=== PATIENT | female | born 1980 | race Two or more races ===

== ENCOUNTER 2018-04-26 08:10 | Emergency (ER) | payer MEDICAID ==
--- NOTE | 2018-04-26 08:39 | EDM.PDOC ---
<Bhupinder Rothman - Last Filed: 04/26/18 08:30> ED HPI GENERAL MEDICAL PROBLEM - General Chief Complaint: Laceration Stated Complaint: LT LEG LAC Time Seen by Provider: 04/26/18 08:45 Source of Information: Reports: Patient History Limitations: Reports: No Limitations - History of Present Illness INITIAL COMMENTS - FREE TEXT/NARRATIVE: Patient presents to the emergency department with a large left lower extremity laceration on her lateral knee/tibial area. 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 She was able to stop the hemorrhaging at the scene with a towel. She is up to date on ehr Tetanus, receiving it last year. She has full range of motion and feeling to her feet and toes. No other injuries present. Onset: Today Onset Time: 08:00 Location: Reports: Lower Extremity, Left Quality: Reports: Ache Severity: Mild Worsens with: Reports: Rest Left Lower Leg Pain Score (Numeric/FACES): 7 - Related Data Allergies Allergy/AdvReac Type Severity Reaction Status Date / Time No Known Allergies Allergy Verified 04/26/18 08:24 Home Meds: Home Meds Simvastatin 10 mg PO DAILY 04/26/18 [History] Past Medical History - Past Health History Medical/Surgical History: Denies Medical/Surgical History Cardiovascular History: Reports: High Cholesterol Social & Family History - Tobacco Use Smoking Status *Q: Current Every Day Smoker Years of Tobacco use: 10 Packs/Tins Daily: 0.5 - Recreational Drug Use Recreational Drug Use: No ED ROS GENERAL - Review of Systems Constitutional: Reports: No Symptoms Musculoskeletal: Denies: No Symptoms Skin: Reports: Wound (left lateral knee/proximal tibial area, from drywall saw accident) Neurological: Reports: No Symptoms. Denies: Numbness, Paresthesia ED EXAM, SKIN/RASH Exam Limited By: No Limitations General Appearance: Alert, No Apparent Distress Peripheral Pulses: 3+: Posterior Tibial (L), Dorsalis Pedis (L) Extremities: Leg Pain (left knee/tibial area, from laceration, mild) Skin: Wound/Incision (left lateral knee /proximal tibial area. 10cm length, 1.5cm width) Course - Vital Signs Last Recorded V/S: Last Vital Signs Temp 98 F 04/26/18 08:20 Pulse 107 H 04/26/18 08:20 Resp 16 04/26/18 08:20 BP 143/98 H 04/26/18 08:20 Pulse Ox 96 04/26/18 08:20 - Orders/Labs/Meds Meds: Medications Discontinued Medications Generic Name Dose Route Start Last Admin Trade Name Fredrick PRN Reason Stop Dose Admin Acetaminophen 975 mg 04/26/18 08:50 04/26/18 09:00 Tylenol PO 04/26/18 08:51 975 mg NOW ONE Administration Lidocaine HCl 50 ml 04/26/18 08:50 04/26/18 09:01 Xylocaine 1% INJECT 04/26/18 08:51 50 ml ONETIME ONE Administration Departure - Departure Disposition: Home, Self-Care 01 Clinical Impression: Leg laceration Qualifiers: Encounter type: initial encounter Laterality: left Qualified Code(s): S81.812A - Laceration without foreign body, left lower leg, initial encounter - Discharge Information Instructions: Laceration Care, Adult Referrals: PCP,None [Primary Care Provider] - Forms: ED Department Discharge Additional Instructions: Laceration care instructions, rest and elevate leg as much as possible, especially these first few days, intermittent ice packs if needed for swelling, you may leave the initial dressing on until tomorrow, cleanse carefully and change dressing at least once or twice daily and then apply antibiotic ointment over the area of laceration 2-3 times daily. Have rechecked any sign of infection, stitches out in about 12 days. There is no charge of you have those removed at our [facility]. Call [phone] for appointment. Tylenol if needed for discomfort. <Quentin Murray - Last Filed: 04/26/18 10:49> ED ROS GENERAL - Review of Systems Review Of Systems: See Below HEENT: Reports: No Symptoms Respiratory: Reports: No Symptoms GI/Abdominal: Denies: Nausea, Vomiting ED EXAM, SKIN/RASH Exam: See Below Head: Atraumatic Respiratory/Chest: No Respiratory Distress Extremities: Leg Pain Neurological: No Motor/Sensory Deficits Skin: Warm, Dry, Wound/Incision (left lateral knee /proximal tibial area. 10cm length, 1.5cm width, moderately deep but not to deep fascia) ED SKIN PROCEDURES - Laceration/Wound Repair Left Lateral Leg Lac/Wound length In cm: 10 Appearance: Linear Anesthetic Type: Local Local Anesthesia - Lidocaine (Xylocaine): 1% Plain Skin Prep: Saline Suture Size: 3-0 Suture Type: Nylon Suture Size: 3-0 # of Sutures: 21 Repaired with: Vicryl Suture Size: 4-0 # of Sutures: 8 Course - Re-Assessments/Exams Free Text/Narrative Re-Assessment/Exam: 04/26/18 10:43 Initial hx and exam was done by ANNMARIE Martínez student. I have also examined patient. I agree with the hx and exam as documented. Departure - Departure Time of Disposition: 10:12 Condition: Fair
[2018-04-26] MEDS ORDERED: Lidocaine 1% 50 ML MDV INJECT ONE (08:50)
[2018-04-26] MEDS ORDERED: Acetaminophen 325 MG Tab PO ONE (08:50)
== END 2018-04-26 10:25 | disposition home or self-care (01) ==
LOC: JD.ED 08:10
DX: S81.012A Laceration without foreign body, left knee, initial encounter (principal); W26.8XXA Contact with other sharp object(s), not elsewhere classified, initial encounter; F17.210 Nicotine dependence, cigarettes, uncomplicated
CPT/HCPCS: 12034; 99283; A9270; 12004